=== PATIENT | female | born 1995 | race Caucasian/White ===

== ENCOUNTER 2016-05-30 16:51 | Emergency (ER) | payer OTHER ==
[~2016-05-30] VITALS: Ht 162.6 cm; Wt 56.7 kg
[~2016-05-30 16:51] MED LIST: HYDR-971 PO; NAPR500T3 PO
[2016-05-30 17:04] VITALS: BP 117/77
[2016-05-30] MEDS ORDERED: IBUPROFEN 600 MG TABLET. PO ONE (17:15)
[2016-05-30] MEDS ORDERED: HYDROCODONE/APAP 5/325MG TABLET. PO ONE (17:15)
[2016-05-30] MEDS ORDERED: HYDR-971 PO (17:45)
[2016-05-30] MEDS ORDERED: NAPR550T PO (17:45)
--- NOTE | 2016-05-30 17:46 | PHYS DOC ---
Past Medical History Past Medical History: No Pertinent History Past Surgical History: No Surgical History Alcohol Use: Occasionally Drug Use: None Adult General Chief Complaint Chief Complaint: MECHANICAL FALL HPI HPI Patient is a 20 year old female presents emergency room today with complaint of tailbone pain after slipping on stairs at home landing onto her buttocks. Patient denies striking her head or loss of consciousness. Patient denies back pain. Patient denies any previous history of tailbone fractures. She denies any history of bone forming disorders. Patient has radiation of pain. Patient denies saddle anesthesia or incontinence of urine and bowel. Review of Systems Review of Systems Constitutional: Denies fever or chills [] Eyes: Denies change in visual acuity, redness, or eye pain [] HENT: Denies nasal congestion or sore throat [] Respiratory: Denies cough or shortness of breath [] Cardiovascular: No additional information not addressed in HPI [] GI: Denies abdominal pain, nausea, vomiting, bloody stools or diarrhea [] : Denies dysuria or hematuria [] Musculoskeletal: Denies back pain or joint pain [] Integument: Denies rash or skin lesions [] Neurologic: Denies headache, focal weakness or sensory changes [] Endocrine: Denies polyuria or polydipsia [] Current Medications Current Medications Current Medications Medications (Trade) Dose Ordered Sig/[facility] Start Time Stop Time Status Last Admin Dose Admin Acetaminophen/ Hydrocodone Bitart (Lortab 5/325) 1 tab 1X ONCE 05/30/16 17:15 05/30/16 17:16 DC 05/30/16 17:23 1 TAB Ibuprofen (Motrin) 600 mg 1X ONCE 05/30/16 17:15 05/30/16 17:16 DC 05/30/16 17:23 600 MG Allergies Allergies Allergies Coded Allergies Type Severity Reaction Last Updated Verified No Known Drug Allergies 06/24/13 No Physical Exam Physical Exam Constitutional: Well developed, well nourished, mild distress, non-toxic appearance. HENT: Normocephalic, atraumatic, bilateral external ears normal, oropharynx moist, no oral exudates, nose normal. [] Eyes: PERRLA, EOMI, conjunctiva normal, no discharge. [] Neck: Normal range of motion, no tenderness, supple, no stridor. [] Cardiovascular:Heart rate regular rhythm, no murmur [] Lungs & Thorax: Bilateral breath sounds clear to auscultation [] Abdomen: Bowel sounds normal, soft, no tenderness, no masses, no pulsatile masses. [] Skin: Warm, dry, no erythema, no rash. [] Back: No tenderness, no CVA tenderness. There is tenderness to palpation to the sacrococcygeal region, with point tenderness in the coccyx. There is no palpable instability or crepitus. Extremities: No tenderness, no cyanosis, no clubbing, ROM intact, no edema. [] Neurologic: Alert and oriented X 3, normal motor function, normal sensory function, no focal deficits noted. [] Psychologic: Affect normal, judgement normal, mood normal. [] Current Patient Data Vital Signs Vital Signs Date Time Temp Pulse Resp B/P Pulse Ox O2 Delivery O2 Flow Rate FiO2 05/30/16 17:23 18 Room Air 05/30/16 17:04 98.2 74 100 98.2 Lab Values Laboratory Tests Test 05/30/16 17:22 POC Urine HCG, Qualitative hcg negative (Negative) EKG EKG [] Radiology/Procedures Radiology/Procedures AP pelvis and 2 focal views of the sacrococcygeal region were performed with adequate technique. There are some nonunion coccygeal bones that are smooth and appearance. There is no evidence of acute fracture or malalignment. Course & Med Decision Making Course & Med Decision Making Pertinent Labs and Imaging studies reviewed. (See chart for details) [] Dragon Disclaimer Dragon Disclaimer This electronic medical record was generated, in whole or in part, using a voice recognition dictation system. Departure Departure Impression: Primary Impression: Coccygeal contusion Disposition: HOME, SELF-CARE Condition: GOOD Referrals: RODERICK GUIDRY (PCP) Patient Instructions: Tailbone Injury, [id number] Additional Instructions: 1. Your x-rays here today do not show a broken bone or malalignment. The x-rays will be over read by radiologist and you will be contacted if there are any discrepancies. 2. Take the medication as prescribed. 3. Review the discharge instructions provided for home/self-care and reasons to return the emergency department. 4. Contact your primary care doctor's office in the morning to schedule a follow -up appointment. Scripts Hydrocodone/Apap 5-325 ([place] 5-325 Tablet)1 Each Tablet1 Tab PO PRN Q6HRS PRN PAIN #10 TAB Prov:FREDERICK CHANEL 05/30/16 Naproxen Sodium (Anaprox Ds)550 Mg [id number] Mg PO every 12 hours #20 Prov:FREDERICK CHANEL 05/30/16 FREDERICK CHANEL May 30, 2016 17:46
--- NOTE | 2016-05-31 08:25 | RAD ---
Three-view study of the sacrum and coccyx. Indications: Fall from stairs. Tailbone pain. Findings: No acute fracture or displacement or osteolytic process is seen. No diastases of either SI joint is seen. IMPRESSION: No acute fracture.
== END 2016-05-30 17:51 | disposition home or self-care (01) ==
LOC: ER 16:51
DX: S30.0XXA Contusion of lower back and pelvis, initial encounter (principal); W01.0XXA Fall on same level from slipping, tripping and stumbling without subsequent striking against object, initial encounter; Y93.89 Activity, other specified; Y99.8 Other external cause status; Y92.89 Other specified places as the place of occurrence of the external cause
CPT/HCPCS: 72220; 81025; 99284

== ENCOUNTER 2017-07-15 16:50 | Emergency (ER) | payer MEDICAID, OTHER ==
[2017-07-15 18:35] LABS: URINE HCG POC HCG POSITIVE (Negative)
[2017-07-15 18:42] LABS: BILIRUBIN,URINE NEGATIVE (NEG); CLARITY,URINE CLEAR; COLOR,URINE AMBER; GLUCOSE,URINE NEGATIVE (NEG); NITRITE,URINE NEGATIVE (NEG); PH,URINE 5.5; PROTEIN,URINE 30 mg/dL (NEG-TRACE)
[2017-07-15] MEDS ORDERED: 0.9 % SODIUM CHLORIDE 10 ML DISP.SYRIN. IV (18:45)
[2017-07-15 19:00] LABS: ADD MAN DIFF? NO
[2017-07-15 19:02] LABS: BASO % 0 % (0-3); EOS # 0.1 x10^3/uL (0.0-0.7); EOS % 1 % (0-3); HEMOGLOBIN 13.2 g/dL (12.0-15.5); LYMPH # 3.9 x10^3/uL (1.0-4.8); LYMPH % 42 % (24-48); MEAN CORPUSCULAR HEMOGLOBIN 31 pg (25-35); MEAN CORPUSCULAR HGB CONC 34 g/dL (31-37); MEAN CORPUSCULAR VOLUME 91 fL (79-100); MONO # 0.4 x10^3/uL (0.0-1.1); MONO % 4 % (0-9); NEUT % 53 % (31-73); PLATELET COUNT 317 x10^3/uL (140-400); RED BLOOD COUNT 4.27 x10^6/uL (3.50-5.40); RED CELL DISTRIBUTION WIDTH 12.9 % (11.5-14.5); WHITE BLOOD COUNT 9.4 x10^3/uL (4.0-11.0)
[2017-07-15] MEDS: IV NORMAL SALINE 1000ML BAG 1,000 ML IV (19:11)
[2017-07-15 19:37] LABS: BACTERIA,URINE 0 /HPF (0-FEW); RBC,URINE >40 /HPF (0-2); SQUAMOUS EPITHELIAL CELL,UR MOD /LPF
[2017-07-15 19:39] LABS: ANION GAP 8 (6-14); BLOOD UREA NITROGEN 13 mg/dL (7-20); CALCIUM 8.7 mg/dL (8.5-10.1); CARBON DIOXIDE 27 mmol/L (21-32); CHLORIDE 107 mmol/L (98-107); CREATININE 0.7 mg/dL (0.6-1.0); GFR 103.7; GLUCOSE 82 mg/dL (70-99); POTASSIUM 3.8 mmol/L (3.5-5.1); SODIUM 142 mmol/L (136-145)
[2017-07-15 19:45] LABS: ALBUMIN 3.4 g/dL (3.4-5.0); ALK PHOS 66 U/L (46-116); ALT (SGPT) 17 U/L (14-59); AST (SGOT) 12 U/L (15-37); DIRECT BILIRUBIN 0.1 mg/dL (0.0-0.2); TOTAL BILIRUBIN 0.3 mg/dL (0.2-1.0); TOTAL PROTEIN 6.8 g/dL (6.4-8.2)
[2017-07-15] MEDS: ACETAMINOPHEN 500 MG TABLET PO (20:35)
[2017-07-17 15:30] LABS: CHLAMYDIA PROBE Negative (Negative); GC PROBE Negative (Negative)
== END 2017-07-15 20:45 | disposition home or self-care (01) ==
LOC: ER 16:50
DX: O20.0 Threatened abortion (principal); O99.331 Smoking (tobacco) complicating pregnancy, first trimester; Z3A.01 Less than 8 weeks gestation of pregnancy
CPT/HCPCS: 36415; 76817; 80048; 80076; 81001; 81025; 84702; 85025; 86900; 86901; 87086; 87491; 87591; 96360; 99285-25; J7030; Q0111

== ENCOUNTER 2017-09-01 13:11 | Emergency (ER) | payer MEDICAID ==
[2017-09-01 14:02] LABS: URINE HCG POC HCG POSITIVE (Negative)
[2017-09-01 14:46] LABS: BILIRUBIN,URINE NEGATIVE (NEG); CLARITY,URINE TURBID; COLOR,URINE YELLOW; GLUCOSE,URINE NEGATIVE (NEG); NITRITE,URINE NEGATIVE (NEG); PROTEIN,URINE NEGATIVE (NEG-TRACE)
[2017-09-01 15:03] LABS: AMORPHOUS SEDIMENT,UR PRESENT /HPF; BACTERIA,URINE 0 /HPF (0-FEW); RBC,URINE 0 /HPF (0-2); SQUAMOUS EPITHELIAL CELL,UR MOD /LPF; WBC,URINE 0 /HPF (0-4)
== END 2017-09-01 15:30 | disposition home or self-care (01) ==
LOC: ER 13:11
DX: Z32.01 Encounter for pregnancy test, result positive (principal); F12.10 Cannabis abuse, uncomplicated; F17.200 Nicotine dependence, unspecified, uncomplicated
CPT/HCPCS: 81001; 81025; 99283